=== PATIENT | male | born 1950 | race Caucasian/White ===

== ENCOUNTER 2018-11-10 09:08 | Day surgery (SDC) | payer MEDICARE ==
[2018-11-10] MEDS ORDERED: BUPIVACAINE 0.5% W/EPI MPF 30 ML VIAL SQ ONE (11:23)
--- NOTE | 2018-11-11 07:51 | Operative Note ---
DATE OF SURGERY: 11/10/2018 PREOPERATIVE DIAGNOSIS: Foreign body left elbow. POSTOPERATIVE DIAGNOSIS: Foreign body left elbow. OPERATION: Excision of foreign body left elbow. STAFF SURGEON: Nicko Francis MD ANESTHESIA: Local. PREPARATION: Chloraprep. INDIVIDUAL CONSIDERATIONS: None. PROCEDURE: The patient was taken to the operating room and placed supine on the operating room table. His left arm was prepped and draped in the usual fashion. The patient had what appeared to be a palpable foreign body over the elbow about 4 cm distal to the tip of the olecranon. The skin was infiltrated with 1% lidocaine. A small shira was made, and then using a hemostat deep, I was able to find about a 2.5 cm drill bit. This corresponded to the x-ray findings. After irrigation, I just left this open, placed a Band-Aid. He was taken back to recovery in good condition. There were no complications. LOGAN
== END 2018-11-10 11:45 | disposition home or self-care (01) ==
LOC: SUR 09:08
PROVIDERS: ATTEND Orthopaedic Surgery
DX: S50.352A Superficial foreign body of left elbow, initial encounter (principal); G62.9 Polyneuropathy, unspecified